=== PATIENT | female | born 1980 | race Caucasian/White ===

== ENCOUNTER 2018-06-30 07:38 | Inpatient (IN) | payer OTHER ==
[2018-06-30] MEDS ORDERED: IBUPROFEN 600 MG TAB PO (08:30)
[2018-06-30] MEDS ORDERED: CARBOPROST 250 MCG INJ IM (08:30)
[2018-06-30] MEDS ORDERED: MISOPROSTOL 200 MCG TAB PR (08:30)
[2018-06-30] MEDS ORDERED: LIDOCAINE 1% (MPF) 30 ML INJ INJ (08:30)
[2018-06-30] MEDS ORDERED: METHYLERGONOVINE 0.2 MG INJ IM (08:30)
[2018-06-30] MEDS ORDERED: OXYTOCIN 30 UNITS/LR 500 ML IV (08:30)
[2018-06-30] MEDS: LACTATED RINGER'S 1,000 ML IV ×4 (09:01→22:23)
[2018-06-30] MEDS: OXYTOCIN 30 UNITS/LR 500 ML IV (09:09)
[2018-06-30 09:20] LABS: ADD MAN DIFF? NO
[2018-06-30 09:28] LABS: BASOPHIL # 0.1 10^3/ul (0.0-0.1); BASOPHILS % 0.5 % (0.0-2.0); EOSINOPHILS # 0.1 10^3/ul (0.0-0.5); EOSINOPHILS % 0.6 % (0.0-7.0); HEMATOCRIT 32.3 % (37.0-47.0); LYMPHOCYTES # 2.5 10^3/ul (0.8-2.9); LYMPHOCYTES % 26.4 % (15.0-51.0); MEAN CORPUSCULAR HEMOGLOBIN 30.5 pg (29.0-33.0); MEAN CORPUSCULAR HGB CONC 34.1 g/dl (32.0-37.0); MEAN CORPUSCULAR VOLUME 89.5 fl (82.0-101.0); MEAN PLATELET VOLUME 10.5 fl (7.4-10.4); MONOCYTE # 0.7 10^3/ul (0.3-0.9); MONOCYTES % 7.2 % (0.0-11.0); NEUTROPHIL # 6.1 10^3/ul (1.6-7.5); NEUTROPHILS % 64.8 % (39.0-77.0); PLATELET COUNT 250 10^3/UL (140-415); RED BLOOD COUNT 3.61 10^6/ul (4.20-5.40); RED CELL DISTRIBUTION WIDTH 14.1 % (11.5-14.5)
[2018-06-30 09:28] LABS: WHITE BLOOD COUNT 9.4 10^3/ul (4.8-10.8)
[2018-06-30 09:44] LABS: INR 0.89; PARTIAL THROMBOPLASTIN TIME 27.3 Sec (23.0-35.0); PROTIME 12.1 Sec (11.9-14.9); PT RATIO 0.9
[2018-06-30 10:16] LABS: HEPATITIS B SURFACE ANTIGEN NEGATIVE (NEGATIVE)
[2018-06-30] MEDS ORDERED: LIDOCAINE 0.5% (SDV) 50 ML INJ INFIL (11:13)
[2018-06-30 11:21] LABS: AMPHETAMINE/METHAMPHETAMINE Negative (NEGATIVE); BARBITURATES Negative (NEGATIVE); BENZODIAZEPINES Negative (NEGATIVE); CANNABINOIDS Negative (NEGATIVE); COCAINE Negative (NEGATIVE); OPIATES Negative (NEGATIVE)
[2018-06-30 15:37] LABS: RAPID PLASMA REAGIN NONREACTIVE (NR)
[2018-06-30] MEDS: BUTORPHANOL 2 MG INJ IV (16:29)
[2018-06-30] MEDS ORDERED: ZOLPIDEM 5 MG TAB PO (18:30)
[2018-06-30] MEDS ORDERED: NALOXONE (0.4 MG/ML) INJ IV (18:30)
[2018-06-30] MEDS ORDERED: ONDANSETRON 4 MG INJ IV (18:30)
[2018-06-30] MEDS ORDERED: HYDROmorphONE 0.5 MG/0.5 ML SYG IV ×2 (18:30)
[2018-06-30] MEDS ORDERED: KETOROLAC 30 MG INJ IV (18:30)
[2018-06-30] MEDS ORDERED: DIPHENHYDRAMINE 50 MG INJ IV (18:30)
[2018-06-30] MEDS: FENTAnyl 2MCG/ML-ROPIV 0.2% 100 ML BAG EPI (20:31)
[2018-07-01] MEDS: LACTATED RINGER'S 1,000 ML IV (00:49)
[2018-07-01] MEDS: FENTAnyl 2MCG/ML-ROPIV 0.2% 100 ML BAG EPI (01:35)
[2018-07-01] MEDS ORDERED: METHYLERGONOVINE 0.2 MG INJ IM (02:30)
[2018-07-01] MEDS ORDERED: NACL 0.9% 3 ML SYG IV (02:30)
[2018-07-01] MEDS ORDERED: CARBOPROST 250 MCG INJ IM (02:30)
[2018-07-01] MEDS ORDERED: OXYTOCIN 30 UNITS/LR 500 ML IV (02:30)
[2018-07-01] MEDS ORDERED: MISOPROSTOL 200 MCG TAB PR (02:30)
[2018-07-01] MEDS ORDERED: DIBUCAINE 1% 30 GM OINT TOP (02:30)
[2018-07-01] MEDS: OXYTOCIN 30 UNITS/LR 500 ML IV ×3 (02:39→07:11)
[2018-07-01] MEDS: MINERAL OIL LIGHT 10 ML VIAL TOP (02:54)
[2018-07-01] MEDS: IBUPROFEN 600 MG TAB PO ×3 (06:00→17:13)
[2018-07-01] MEDS: LANOLIN 7 GM TUBE TOP (06:01)
[2018-07-01] MEDS: WITCH HAZEL/GLYCERIN PAD PR (06:01)
[2018-07-01] MEDS: SENNA/DOCUSATE NA (8.6MG/50MG) TAB PO ×2 (09:00→21:30)
[2018-07-01] MEDS ORDERED: HYDROCODONE/APAP (5/325) TAB PO ×2 (18:30)
[2018-07-01] MEDS ORDERED: ZOLPIDEM 5 MG TAB PO (18:30)
[2018-07-02] MEDS ORDERED: IBUPROFEN 600 MG TAB PO
[2018-07-02] MEDS: IBUPROFEN 600 MG TAB PO ×4 (00:39→17:10)
[2018-07-02 08:53] LABS: ADD MAN DIFF? NO
[2018-07-02 08:57] LABS: BASOPHILS % 0.3 % (0.0-2.0); EOSINOPHILS # 0.1 10^3/ul (0.0-0.5); EOSINOPHILS % 1.2 % (0.0-7.0); HEMATOCRIT 28.3 % (37.0-47.0); HEMOGLOBIN 9.2 g/dl (12.0-16.0); LYMPHOCYTES # 2.4 10^3/ul (0.8-2.9); LYMPHOCYTES % 23.6 % (15.0-51.0); MEAN CORPUSCULAR HEMOGLOBIN 30.5 pg (29.0-33.0); MEAN CORPUSCULAR HGB CONC 32.5 g/dl (32.0-37.0); MEAN CORPUSCULAR VOLUME 93.7 fl (82.0-101.0); MEAN PLATELET VOLUME 10.6 fl (7.4-10.4); MONOCYTE # 0.7 10^3/ul (0.3-0.9); MONOCYTES % 6.7 % (0.0-11.0); NEUTROPHILS % 67.7 % (39.0-77.0); PLATELET COUNT 203 10^3/UL (140-415); RED BLOOD COUNT 3.02 10^6/ul (4.20-5.40); RED CELL DISTRIBUTION WIDTH 14.4 % (11.5-14.5)
[2018-07-02 08:57] LABS: WHITE BLOOD COUNT 10.3 10^3/ul (4.8-10.8)
[2018-07-02] MEDS: INFLUENZA VIRUS VACCINE 0.5 ML (DISPENSING) IM* (10:00)
[2018-07-02] MEDS: SENNA/DOCUSATE NA (8.6MG/50MG) TAB PO (11:46)
[2018-07-02] MEDS: DIPHTH/TET/ACEL PERTUSS (ADULT) 0.5 ML VIAL IM* (15:59)
== END 2018-07-02 19:01 | disposition home or self-care (01) | DRG 807 ==
LOC: L-D 07:38 → PP1 07-01 05:28
PROVIDERS: Obstetrics & Gynecology
PROC: 10E0XZZ Delivery of Products of Conception, External Approach (ICD-10-PCS; principal; 2018-07-01)
PROC: 0KQM0ZZ Repair Perineum Muscle, Open Approach (ICD-10-PCS; 2018-07-01)
PROC: 0W8NXZZ Division of Female Perineum, External Approach (ICD-10-PCS; 2018-07-01)
DX: O75.89 Other specified complications of labor and delivery (principal); Z37.0 Single live birth; O48.0 Post-term pregnancy; O70.0 First degree perineal laceration during delivery; Z3A.40 40 weeks gestation of pregnancy; Z23 Encounter for immunization
CPT/HCPCS: 62319; 80307; 85025; 85610; 85730; 86592; 86850; 86900; 86901; 87340; 90686; 90715; 99464